=== PATIENT | male | born 2000 | race Caucasian/White ===

== ENCOUNTER 2019-07-30 14:33 | Emergency (ER) | payer SELFPAY ==
[~2019-07-30] VITALS: Ht 180.3 cm; Wt 86.2 kg
--- NOTE | 2019-07-30 14:42 | Emergency Room Report ---
History of Present Illness General Chief Complaint: Altered mental status Source: Patient Present Illness HPI Patient is 18-year-old male who presents after increased altered mental status. Patient had been brought in by friend. He was noted to be unresponsive. Friend reports that he had done heroin prior to arrival. Unknown past medical history. Unknown allergies. History is markedly limited by patient's acuity and altered mental status. Allergies: Coded Allergies: No Known Allergies (Unverified , 07/30/19) Patient History Limited by: other - Mental status Past Medical History: see triage record Past Surgical History: unable to obtain Pertinent Family History: unable to obtain Review of Systems All Other Systems: limited - History is limited by altered mental status Physical Exam General Appearance: Stupor Head: atraumatic Eyes: bilateral eye other - pinpoint pupils ENT: other - Decreased gag Neck: normal inspection, full range of motion, supple, no bony tend Respiratory: other - Decreased respiratory effort Cardiovascular #1: regular rate, rhythm, no edema Gastrointestinal: normal inspection, normal bowel sounds, non tender, soft, no guarding, no hernia Genitourinary: no CVA tenderness Musculoskeletal: normal inspection, back normal, normal range of motion Neurologic: other - Decreased respiratory rate, GCS of 3, no cyanosis continued slow respirations Psychiatric: normal inspection, judgement/insight normal, mood/affect normal Skin: other - Diaphoretic Medical Decision Making Diagnostic Impression: Primary Impression: Opiate overdose ER Course Patient presented for altered mental status after possible overdose. Differential diagnosis include was not limited to hypoglycemia, heroin overdose , head injury among others. Patient was noted to have what appears to be a heroin overdose and [facility]. He was noted to have agonal respirations and was given 2 mg of IM Narcan. He was noted to continued to be somnolent and additional 2 mg of IV Narcan was given. Patient subsequently had improvement in his mental status. Patient is now to be awake and alert and able to make verbal responses at that time. Patient reports subsequently that he did use heroin. He states he has used heroin in the past.Patient was observed in the emergency department. He continued to have normal mental status. Patient was noted to be awake alert and ambulatory without assistance. He denies any current complaints. Laboratory testing does not appear to be indicated at this time. Patient did not want to wait for observation. Patient stated that he wanted to leave. He appears to be stable for discharge however has not fulfilled observation time and will be therefore leaving AGAINST MEDICAL ADVICE. Patient advised risk of recurrent respiratory discretion loss of life and current lifestyle. He indicates understanding and does not appear to be under the influence of any narcotics at the time of AMA. Patient was advised to return if he changes mind. This report is dictated with [employer] software which may occasionally lead to discrepancies related to use of this software. Status: improved Disposition: AGAINST MEDICAL ADVICE Condition: Stable Omid Evans MD Jul 30, 2019 14:42
[2019-07-30] MEDS ORDERED: Naloxone 1mg/ml 2ml IM ONE (14:45)
[2019-07-30] MEDS ORDERED: Naloxone 1mg/ml 2ml IVP ONE (14:45)
[2019-07-30 14:48] VITALS: BP 152/92
[2019-07-30 15:44] VITALS: BP 152/92
== END 2019-07-30 15:40 | disposition home or self-care (01) ==
LOC: EMR 15:21
DX: T40.601A Poisoning by unspecified narcotics, accidental (unintentional), initial encounter (principal); R41.82 Altered mental status, unspecified; Y92.9 Unspecified place or not applicable; Z53.29 Procedure and treatment not carried out because of patient's decision for other reasons
CPT/HCPCS: 96372; 96374; 99284

== ENCOUNTER 2019-08-01 11:53 | Emergency (ER) | payer SELFPAY ==
[~2019-08-01] VITALS: Ht 182.9 cm; Wt 77.1 kg
[2019-08-01] MEDS ORDERED: Naloxone 1mg/ml 2ml IM ONE (12:00)
[2019-08-01 12:15] VITALS: BP 115/60
[2019-08-01 12:21] VITALS: BP 115/60
--- NOTE | 2019-08-01 13:11 | Emergency Room Report ---
History of Present Illness General Chief Complaint: Overdose Source: Friend, Medical Record Present Illness HPI 18-year-old male presents ED for overdose. Brought in by friend by car. States that patient overdosed on fentanyl. Today. Patient lethargic in car. There is needles and other paraphernalia in the car seat. Patient protecting airway. No signs of distress. Patient has been seen here previously for overdose. No reported alcohol use. No other aggravating relieving factors. Denies any other associated symptoms COVID-19 risk:Contact w/high r: No COVID-19 risk:Travel to affect: No Has patient experienced phillips: No Allergies: Coded Allergies: No Known Allergies (Unverified , 07/30/19) Patient History Past Medical History: none Past Surgical History: none Pertinent Family History: none Social History: Reports: drug use; Denies: smoking, alcohol use Immunizations: UTD Reviewed Nursing Documentation: PMH: Agreed; PSxH: Agreed Review of Systems All Other Systems: limited Physical Exam Vital Signs Date Time Temp Pulse Resp B/P (MAP) Pulse Ox O2 Delivery O2 Flow Rate FiO2 08/01/19 12:11 97.3 64 24 115/60 (78) 99 Room Air 2.0 Sp02 EP Interpretation: reviewed, normal General Appearance: no apparent distress, GCS 15, non-toxic, lethargic Head: normocephalic Eyes: bilateral eye normal inspection, bilateral eye PERRL ENT: normal ENT inspection Neck: normal inspection Respiratory: chest non-tender, lungs clear, normal breath sounds, speaking full sentences Cardiovascular #1: regular rate, rhythm, no edema Gastrointestinal: normal bowel sounds, non tender, soft, non-distended, no guarding, no rebound Rectal: deferred Genitourinary: no CVA tenderness Musculoskeletal: back normal, normal range of motion, gait/station normal, non- tender Neurologic: other - lethargic Psychiatric: other - lethargic Skin: no rash Lymphatic: normal inspection Medical Decision Making Diagnostic Impression: Primary Impression: Drug overdose Qualified Codes: T50.901A - Poisoning by unspecified drugs, medicaments and biological substances, accidental (unintentional), initial encounter ER Course Hospital Course 18-year-old M presents to ED with altered mental status. reportedly overdosed on fentanyl per friend Differential diagnoses include: Psychosis, EtOH, drug abuse Clinical course patient placed on stretcher. On valet service attendant. After initial history and physical ordered Narcan IM Awake alert oriented. Gets up. Wants to leave. I encourage patient to be observed for 2 hours as this is the effect of Narcan. Patient refuses to stay. On review of EMR patient did the same thing 2 days ago. Patient states she wishes to go home. Understands the risks of leaving. Patient has competency to make his own decisions. Signed AMA form. i. I feel this is a highly complex case requiring extensive working including EKG/Rhythm strip, Xray/CT/US, Blood/urine lab work, repeat exams while in ED, and administration of strong opiates/narcotics for pain control, admission to hospital or close patient follow up. Diagnosis -drug overdose patient left AMA Last Vital Signs Date Time Temp Pulse Resp B/P (MAP) Pulse Ox O2 Delivery O2 Flow Rate FiO2 08/01/19 12:11 97.3 64 24 115/60 (78) 99 Room Air 2.0 Status: improved Disposition: AGAINST MEDICAL ADVICE Condition: Stable Referrals: NOT CHOSEN IPA/,REFERRING (PCP) Daniel Duff MD Aug 01, 2019 13:11
== END 2019-08-01 12:21 | disposition left against medical advice (07) ==
LOC: EMR 12:14
DX: T40.4X1A Poisoning by other synthetic narcotics, accidental (unintentional), initial encounter (principal); X58.XXXA Exposure to other specified factors, initial encounter; Y92.9 Unspecified place or not applicable
CPT/HCPCS: 96372; 99283; J2310